=== PATIENT | female | born 1965 | race African-American/Black ===

== ENCOUNTER 2016-10-24 07:15 | Emergency (ER) | payer MEDICAID, OTHER ==
[~2016-10-24] VITALS: Ht 160 cm; Wt 86.0 kg
[~2016-10-24 07:15] MED LIST: ALBU6.7H IH
[2016-10-24] MEDS ORDERED: KETOROLAC 60MG/2ML VIAL IM ONE (08:30)
[2016-10-24] MEDS ORDERED: IBUPROFEN 800MG TABLET PO ONE (09:30)
[2016-10-24 10:10] VITALS: BP 143/81
== END 2016-10-24 10:26 | disposition home or self-care (01) ==
LOC: ER 07:33
DX: S39.012A Strain of muscle, fascia and tendon of lower back, initial encounter (principal); F17.210 Nicotine dependence, cigarettes, uncomplicated; V43.52XA Car driver injured in collision with other type car in traffic accident, initial encounter; Y93.89 Activity, other specified; Y92.481 Parking lot as the place of occurrence of the external cause
CPT/HCPCS: 99283; Z7610; J1885